=== PATIENT | male | born 1975 | race Caucasian/White ===

== ENCOUNTER 2020-09-25 12:24 | Emergency (ER) | payer BC, OTHER ==
[2020-09-25 12:47] VITALS: BP 129/92; PULSE 66; TEMP 98.1; BMI 36.7
== END 2020-09-25 13:31 | disposition home or self-care (01) ==
LOC: FER 12:24
DX: M79.602 Pain in left arm (principal); Z86.79 Personal history of other diseases of the circulatory system
CPT/HCPCS: 93005; 99283-25